=== PATIENT | male | born 1985 | race Caucasian/White ===

== ENCOUNTER 2021-07-05 09:35 | Emergency (ER) | payer SELFPAY ==
[~2021-07-05] VITALS: Ht 172.7 cm; Wt 123.4 kg
[2021-07-05] MEDS ORDERED: fentaNYL INJ 100 MCG/2 ML AMP IVP ONE (10:30)
[2021-07-05] MEDS ORDERED: lisINopril 20 MG (PRINIVIL) TABLET PO ONE (11:30)
[2021-07-05] MEDS ORDERED: KETOROLAC 30 MG/ML VIAL IVP ONE (11:30)
[2021-07-05 11:31] LABS: BASOPHILS % (AUTO) 0 % (0-10); EOSINOPHILS # (AUTO) 0.2 10^3/uL (0.0-0.3); EOSINOPHILS % (AUTO) 3 % (0-10); HEMATOCRIT 42 % (40-54); HEMOGLOBIN 14.9 g/dL (13.3-17.7); LYMPHOCYTES # (AUTO) 1.4 10^3/uL (1.0-4.0); LYMPHOCYTES % (AUTO) 20 % (12-44); MEAN CORPUSCULAR HEMOGLOBIN 30 pg (25-34); MEAN CORPUSCULAR HGB CONC 36 g/dL (32-36); MEAN CORPUSCULAR VOLUME 84 fL (80-99); MEAN PLATELET VOLUME 9.4 fL (9.0-12.2); MONOCYTES # (AUTO) 0.6 10^3/uL (0.0-1.0); MONOCYTES % (AUTO) 8 % (0-12); NEUTROPHILS # (AUTO) 4.7 10^3/uL (1.8-7.8); NEUTROPHILS % (AUTO) 68 % (42-75); PLATELET COUNT 208 10^3/uL (130-400)
[2021-07-05 11:39] LABS: CALCIUM 8.7 MG/DL (8.5-10.1); CREATININE SERUM 0.85 MG/DL (0.60-1.30); POTASSIUM 4.3 MMOL/L (3.6-5.0)
[2021-07-05] MEDS ORDERED: morphine INJ 10 MG/ML 1ML (SYR OR VIAL) IVP STA (11:58)
[2021-07-05] MEDS ORDERED: IOHEXOL 350 MG/ML 100 ML (OMNIPAQUE 350) VIAL IV ONE (12:45)
[2021-07-05] MEDS ORDERED: NS 100 ML (IVPB) BAG IV ONE (12:45)
[2021-07-05] MEDS ORDERED: HOLD METFORMIN - RECEIVED CONTRAST 20 ML VIAL IV SCH (12:45)
--- NOTE | 2021-07-05 13:00 | Diagnostic Imaging Report ---
PROCEDURE: CT maxillofacial with contrast. TECHNIQUE: After intravenous administration of contrast, axial images were obtained through the face and reformatted into coronal and sagittal planes. Auto Exposure Controls were utilized during the CT exam to meet ALARA standards for radiation dose reduction. INDICATION: Facial pain. Cellulitis. COVID positive. COMPARISON: None. FINDINGS: No acute facial fractures are identified. Pansinusitis is seen with the greatest involvement in the right maxillary sinus. The mastoid air cells are clear. The globes and orbits are symmetric and unremarkable. No post septal inflammatory changes are seen. No radiopaque foreign bodies. There is mild edema in the soft tissues overlying the right zygomatic arch. No evidence of loculated fluid collection. The included cervical spine demonstrates no acute fracture. The craniocervical junction is intact. The included intracranial contents demonstrate no acute abnormalities. IMPRESSION: 1. Pansinusitis. 2. Mild soft tissue edema overlying the right zygomatic arch. No evidence of abscess or radiopaque foreign body. 3. Unremarkable appearance of the globes and orbits. 4. No acute facial fractures. Dictated by: Dictated on workstation # [id number]
[2021-07-05] MEDS ORDERED: cefTRIAXone 1,000 MG in WATER (STERILE) FOR INJECTION 10 ML IV ONE (13:30)
[2021-07-05] MEDS ORDERED: FLUT9.9S NSEACH (13:36)
[2021-07-05] MEDS ORDERED: SULF1TAB38 PO (13:36)
[2021-07-05] MEDS ORDERED: AMOX500C2 PO (13:36)
[2021-07-05] MEDS ORDERED: OXYM15MI4 NSEACH (13:36)
[2021-07-05] MEDS ORDERED: OXYC1TAB87 PO (13:36)
--- NOTE | 2021-07-05 13:38 | ED General ---
General Chief Complaint: COVID19 Suspect/Confirmed Stated Complaint: COVID + R EYE IRRITATION [facility] Nursing Triage Note: PT AMB TO [facility] 9 WITH COMPLAINT OF RIGHT EYE/FACE DISCOMFORT. STATES HE TESTED POSITIVE FOR COVID ON TUESDAY. STATES HIS RIGHT NOSTRIL IS ALSO BLOCKED. Source of Information: Patient Exam Limitations: No Limitations History of Present Illness Date Seen by Provider: Jul 05, 2021 Time Seen by Provider: 10:43 Initial Comments This is a 36-year-old gentleman presents to the emergency room with flulike symptoms since July 01 and diagnosis of Covid on July 02. His primary complaint today is rather intense pain and congestion of the right face. This extends up into the periorbital region. He has tried Tylenol and ibuprofen without significant improvement. He is markedly hypertensive today and reports he has not yet taken his blood pressure medication. He has erythema and swelling of the right face. Patient notes fever at home but he is afebrile here and heart rate is normal. Allergies and Home Medications Allergies Coded Allergies: No Known Drug Allergies (Unverified , 07/05/21) Patient Home Medication List Home Medication List Reviewed: Yes Amoxicillin (Amoxicillin) 500 Mg Capsule, 1,000 MG PO BID Prescribed by: HAL MUNIZ on 07/05/21 133 Fluticasone Propionate (Flonase Allergy Relief) 9.9 Ml [place].susp, 2 SPRAY NSEACH DAILY Prescribed by: HAL MUNIZ on 07/05/211335 Methylprednisolone (Medrol) 4 Mg Tab.ds.pk, 4 MG PO UD Prescribed by: CHARIS FLORES on 07/05/211954 Oxycodone HCl/Acetaminophen (Percocet 5-325 mg Tablet) 1 Each Tablet, 1-2 TAB PO Q4H PRN for PAIN-BREAKTHROUGH Prescribed by: HAL MUNIZ on 07/05/211335 Oxymetazoline HCl (Afrin) 15 Ml Mist, 2 SPRAYS NSEACH BID Prescribed by: HAL MUNIZ on 07/05/21 133 Sulfamethoxazole/Trimethoprim (Bactrim Ds Tablet) 1 Each Tablet, 1 EACH PO BID Prescribed by: HAL MUNIZ on 07/05/21 133 Review of Systems Review of Systems Constitutional: see HPI EENTM: see HPI Respiratory: cough, short of breath Cardiovascular: no symptoms reported Gastrointestinal: no symptoms reported Genitourinary: no symptoms reported Musculoskeletal: no symptoms reported Skin: see HPI Psychiatric/Neurological: No Symptoms Reported Hematologic/Lymphatic: No Symptoms Reported Immunological/Allergic: no symptoms reported Past Vrjdsdg-Olpnhc-Kzbzeo Hx Patient Social History Tobacco Use?: No Use of E-Cig and/or Vaping dev: No Substance use?: No Alcohol Use?: No Pt feels they are or have been: No Past Medical History Surgeries: No (None reported) Respiratory: No Cardiac: Yes Hypertension Neurological: No Genitourinary: No Gastrointestinal: No Musculoskeletal: No Endocrine: Yes Diabetes, Non-Insulin dep HEENT: No Cancer: No Psychosocial: No Integumentary: No Physical Exam Vital Signs Vital Signs - First Documented 07/05/21 09:48 Temp 36.0 Pulse 68 Resp 22 B/P (MAP) 186/141 (156) Pulse Ox 98 O2 Delivery Room Air Capillary Refill : Less Than 3 Seconds Height, Weight, BMI Height: '" Weight: lbs. oz. kg; 41.00 BMI Method: General Appearance: No Apparent Distress, WD/WN, Obese HEENT: PERRL/EOMI, TMs Normal, Pharynx Normal, Other (Erythema and swelling of the right face with tenderness and warmth to palpation. He has pain with extraocular movement but no changes in vision or diplopia. 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 Skin: Normal Color, Warm/Dry, Erythema (Of the right face) Progress/Results/Core Measures Suspected Sepsis SIRS Temperature: Pulse: 68 Respiratory Rate: 22 Laboratory Tests 07/05/21 10:40: White Blood Count 7.0 Blood Pressure 186 /141 Mean: 156 Laboratory Tests 07/05/21 10:40: Creatinine 0.85, Platelet Count 208 Results/Orders Lab Results Laboratory Tests Test 07/05/21 10:40 Range/Units White Blood Count 7.0 4.3-11.0 10^3/uL Red Blood Count 5.03 4.30-5.52 10^6/uL Hemoglobin 14.9 13.3-17.7 g/dL Hematocrit 42 40-54 % Mean Corpuscular Volume 84 80-99 fL Mean Corpuscular Hemoglobin 30 25-34 pg Mean Corpuscular Hemoglobin Concent 36 32-36 g/dL Red Cell Distribution Width 11.9 10.0-14.5 % Platelet Count 208 130-400 10^3/uL Mean Platelet Volume 9.4 9.0-12.2 fL Immature Granulocyte % (Auto) 1 % Neutrophils (%) (Auto) 68 42-75 % Lymphocytes (%) (Auto) 20 12-44 % Monocytes (%) (Auto) 8 0-12 % Eosinophils (%) (Auto) 3 0-10 % Basophils (%) (Auto) 0 0-10 % Neutrophils # (Auto) 4.7 1.8-7.8 10^3/uL Lymphocytes # (Auto) 1.4 1.0-4.0 10^3/uL Monocytes # (Auto) 0.6 0.0-1.0 10^3/uL Eosinophils # (Auto) 0.2 0.0-0.3 10^3/uL Basophils # (Auto) 0.0 0.0-0.1 10^3/uL Immature Granulocyte # (Auto) 0.1 0.0-0.1 10^3/uL Sodium Level 135 135-145 MMOL/L Potassium Level 4.3 3.6-5.0 MMOL/L Chloride Level 101 98-107 MMOL/L Carbon Dioxide Level 26 21-32 MMOL/L Anion Gap 8 5-14 MMOL/L Blood Urea Nitrogen 7 7-18 MG/DL Creatinine 0.85 0.60-1.30 MG/DL Estimat Glomerular Filtration Rate 101 BUN/Creatinine Ratio 8 Glucose Level 268 H 70-105 MG/DL Calcium Level 8.7 8.5-10.1 MG/DL C-Reactive Protein High Sensitivity 2.36 H 0.00-0.50 MG/DL Procalcitonin 0.04 <0.10 NG/ML My Orders Orders - HAL SANFORD MD Fentanyl Inj (Sublimaze Injection) (07/05/21 10:30) Ketorolac Injection (Toradol Injection) (07/05/21 11:30) Lisinopril Tablet (Zestril Tablet) (07/05/21 11:30) Basic Metabolic Panel (07/05/21 11:19) Cbc With Automated Diff (07/05/21 11:19) Hs C Reactive Protein (07/05/21 11:19) Procalcitonin (Pct) (07/05/21 11:19) Ct Maxillofacial W (07/05/21 11:19) Morphine Injection (Morphine Injection (07/05/21 11:58) Iohexol Injection (Omnipaque 350 Mg/Ml 1 (07/05/21 12:45) Received Contrast (Hold Metformin- Contr (07/05/21 12:45) Ns (Ivpb) (Sodium Chloride 0.9% Ivpb Bag (07/05/21 12:45) Ceftriaxone (Rocephin) (07/05/21 13:30) Medications Given in ED Current Medications Medications Dose Ordered Sig/Nigel Route Start Time Stop Time Status Last Admin Dose Admin Ceftriaxone Sodium 1000 mg/ Sterile Water 10 ml @ 200 mls/hr ONCE ONCE IV 07/05/21 13:30 07/05/21 13:32 DC 07/05/21 13:55 200 MLS/HR Fentanyl Citrate 50 mcg ONCE ONCE IVP 07/05/21 10:30 07/05/21 10:31 DC 07/05/21 10:42 50 MCG Iohexol 75 ml ONCE ONCE IV 07/05/21 12:45 07/05/21 12:46 DC 07/05/21 12:42 75 ML Ketorolac Tromethamine 30 mg ONCE ONCE IVP 07/05/21 11:30 07/05/21 11:31 DC 07/05/21 11:46 30 MG Lisinopril 20 mg ONCE ONCE PO 07/05/21 11:30 07/05/21 11:31 DC 07/05/21 11:46 20 MG Sodium Chloride 100 ml ONCE ONCE IV 07/05/21 12:45 07/05/21 12:46 DC 07/05/21 12:42 80 ML Vital Signs/I&O 07/05/21 07/05/21 09:48 14:04 Temp 36.0 Pulse 68 67 Resp 22 19 B/P (MAP) 186/141 (156) 134/105 Pulse Ox 98 98 O2 Delivery Room Air Room Air Capillary Refill : Less Than 3 Seconds Blood Pressure Mean: 156 Progress Note : Progress Note Patient was seen and evaluated. Pain was initially treated with fentanyl. This was later followed by Toradol and morphine as his pain was difficult to manage. He was given his usual dose of lisinopril to help with his blood pressure. Blood pressure did significantly improve. CT imaging of the face was obtained to rule out any abscess or orbital pathology. CT was suggestive of cellulitis but showed no abscess. There was also pansinusitis. Labs were unremarkable. Patient had no suggestion of sepsis on his work-up. He was treated with a dose of Rocephin. Prescriptions were provided for treatment of sinusitis and pain. Patient was also noted to have comorbidities at high risk in Covid infection including diabetes, obesity, and hypertension. We discussed monoclonal antibody therapy which he would like to have ordered. He will review the fact sheet. An order was sent to pharmacy. See discharge instructions for further discussion. Diagnostic Imaging Diagonstic Imaging: CT Plain Films/CT/US/NM/MRI: facial bones Comments CT scan report reviewed. See report below: NAME: HANNAH MANCILLA [facility] REC#: [id number] PT STATUS: REG ER : 1985 PHYSICIAN: HAL SANFORD MD ADMIT DATE: 07/05/21/ER Signed Date of Exam:07/05/21 CT MAXILLOFACIAL W PROCEDURE: CT maxillofacial with contrast. TECHNIQUE: After intravenous administration of contrast, axial images were obtained through the face and reformatted into coronal and sagittal planes. Auto Exposure Controls were utilized during the CT exam to meet ALARA standards for radiation dose reduction. INDICATION: Facial pain. Cellulitis. COVID positive. COMPARISON: None. FINDINGS: No acute facial fractures are identified. Pansinusitis is seen with the greatest involvement in the right maxillary sinus. The mastoid air cells are clear. The globes and orbits are symmetric and unremarkable. No post septal inflammatory changes are seen. No radiopaque foreign bodies. There is mild edema in the soft tissues overlying the right zygomatic arch. No evidence of loculated fluid collection. The included cervical spine demonstrates no acute fracture. The craniocervical junction is intact. The included intracranial contents demonstrate no acute abnormalities. IMPRESSION: 1. Pansinusitis. 2. Mild soft tissue edema overlying the right zygomatic arch. No evidence of abscess or radiopaque foreign body. 3. Unremarkable appearance of the globes and orbits. 4. No acute facial fractures. Dictated by: Dictated on workstation # [id number] Dict: 07/05/21 1251 Trans: 07/05/21 1301 [facility] [id number] Interpreted by: FEDERICO BROUSSARD DO Electronically signed by: FEDERICO BROUSSARD DO 07/05/21 1301 Departure Impression Primary Impression: Acute pansinusitis Qualified Codes: J01.40 - Acute pansinusitis, unspecified Additional Impressions: Facial cellulitis COVID-19 Hypertension Qualified Codes: I10 - Essential (primary) hypertension Disposition: HOME, SELF-CARE Condition: Improved Departure-Patient Inst. Decision time for Depature: 13:32 Referrals: [facility] [place] Primary Care Physician AYLIN VIDES (Family) Primary Care Physician Patient Instructions: Sinusitis, Adult ED Add. Discharge Instructions: Complete your antibiotics as prescribed. Use ibuprofen up to 600 mg every 6 hours as needed for primary pain control. Add Percocet as prescribed for pain not controlled by ibuprofen. For nasal congestion you may use Afrin 2 sprays in each nostril twice daily for 3 days. Do NOT use Afrin for more than 3 days. You may continue to use Flonase (fluticasone) nasal steroid spray indefinitely for further nasal congestion relief. Call with questions or concerns. Return to the ER if you have worsening symptoms. The pharmacy should be calling you to schedule a time for monoclonal antibody therapy. If you decide to proceed with this after reading the fact sheet, then follow pharmacy instructions for returning for infusion. All discharge instructions reviewed with patient and/or family. Voiced understanding. Scripts Fluticasone Propionate (Flonase Allergy Relief) 9.9 Ml [place].susp 2 SPRAY NSEACH DAILY, #1 EACH 2 SPRAYS PER NOSTRIL DAILY X 2 DAYS THEN 1 SPRAY DAILY Prov: HAL SANFORD MD 07/05/21 Oxymetazoline HCl (Afrin) 15 Ml Mist 2 SPRAYS NSEACH BID, #1 EA Prov: HAL SANFORD MD 07/05/21 Amoxicillin (Amoxicillin) 500 Mg Capsule 1000 MG PO BID, #40 CAP 0 Refills Prov: HAL SANFORD MD 07/05/21 Sulfamethoxazole/Trimethoprim (Bactrim Ds Tablet) 1 Each Tablet 1 EACH PO BID, #20 TAB Prov: HAL SANFORD MD 07/05/21 Oxycodone HCl/Acetaminophen (Percocet 5-325 mg Tablet) 1 Each Tablet 1-2 TAB PO Q4H PRN for PAIN-BREAKTHROUGH MDD 12 TABS, #20 TAB Prov: HAL SANFORD MD 07/05/21 HAL SANFORD MD Jul 05, 2021 13:38
[2021-07-05 14:04] VITALS: BP 134/105
[2021-07-05] MEDS ORDERED: METH4TAB PO (19:55)
== END 2021-07-05 14:04 | disposition home or self-care (01) ==
LOC: ER 09:39
DX: U07.1 COVID-19 (principal); J01.40 Acute pansinusitis, unspecified; L03.211 Cellulitis of face; I10 Essential (primary) hypertension; E66.9 Obesity, unspecified; E11.9 Type 2 diabetes mellitus without complications; Z68.41 Body mass index [BMI] 40.0-44.9, adult
CPT/HCPCS: 36415; 70487; 80048; 84145; 85025; 86141; 96374; 96375

== ENCOUNTER 2021-07-05 19:15 | Emergency (ER) | payer SELFPAY ==
[~2021-07-05] VITALS: Ht 172.7 cm; Wt 123.4 kg
[~2021-07-05 19:15] MED LIST: AMOX500C2 PO; FLUT9.9S NSEACH; OXYC1TAB87 PO; OXYM15MI4 NSEACH; SULF1TAB38 PO
[2021-07-05 19:23] VITALS: BP 152/101
[2021-07-05] MEDS ORDERED: METH4TAB PO (19:55)
--- NOTE | 2021-07-05 19:55 | ED EENT ---
History of Present Illness General Chief Complaint: Nasal Problems Stated Complaint: SINUS INFECTION PAIN Nursing Triage Note: c/o right sided sinus pain here for same 07/05/21 reports percocet not working for pain. covid positive 07/02/21 Allergies and Home Medications Allergies Coded Allergies: No Known Drug Allergies (Unverified , 07/05/21) Patient Home Medication List Amoxicillin (Amoxicillin) 500 Mg Capsule, 1,000 MG PO BID Prescribed by: HAL MUNIZ on 07/05/21 133 Fluticasone Propionate (Flonase Allergy Relief) 9.9 Ml [place].susp, 2 SPRAY N SEACH DAILY Prescribed by: HAL MUNIZ on 07/05/21 133 Methylprednisolone (Medrol) 4 Mg Tab.ds.pk, 4 MG PO UD Prescribed by: CHARIS FLORES on 07/05/211954 Oxycodone HCl/Acetaminophen (Percocet 5-325 mg Tablet) 1 Each Tablet, 1-2 TAB PO Q4H PRN for PAIN-BREAKTHROUGH Prescribed by: HAL MUNIZ on 07/05/21 133 Oxymetazoline HCl (Afrin) 15 Ml Mist, 2 SPRAYS NSEACH BID Prescribed by: HAL MUNIZ on 07/05/21 133 Sulfamethoxazole/Trimethoprim (Bactrim Ds Tablet) 1 Each Tablet, 1 EACH PO BID Prescribed by: HAL MUNIZ on 07/05/21 133 Past Xufekrk-Hncoze-Rinycf Hx Patient Social History Tobacco Use?: Yes Substance use?: No Alcohol Use?: No Pt feels they are or have been: No Past Medical History Surgery/Hospitalization HX: niddm, htn,depression, Physical Exam Vital Signs Vital Signs - First Documented 07/05/21 19:23 Temp 36.9 Pulse 67 Resp 16 B/P (MAP) 152/101 (118) Pulse Ox 98 O2 Delivery Room Air Height, Weight, BMI Height: '" Weight: lbs. oz. kg; 41.00 BMI Method: Progress/Results/Core Measures Results/Orders My Orders Orders - CHARIS FLORES DO Ketorolac Injection (Toradol Injection) (07/05/21 20:00) Vital Signs/I&O 07/05/21 19:23 Temp 36.9 Pulse 67 Resp 16 B/P (MAP) 152/101 (118) Pulse Ox 98 O2 Delivery Room Air Blood Pressure Mean: 118 Departure Impression Primary Impression: Acute pansinusitis Additional Impressions: COVID-19 Facial cellulitis Disposition: HOME, SELF-CARE Condition: Stable Departure-Patient Inst. Decision time for Depature: 19:53 Referrals: [facility] (PCP) Primary Care Physician AYLIN VIDES (Family) Primary Care Physician Patient Instructions: COVID-19 (DC), Sinusitis, Adult (DC) Add. Discharge Instructions: CONTINUE ALL MEDICATIONS PRESCRIBED FOLLOW UP WITH [facility] IN 4-5 DAYS IF NO BETTER, RETURN TO ER IF WORSE TYLENOL AND MOTRIN NEEDED FOR PAIN OR FEVER LOTS OF CLEAR LIQUIDS All discharge instructions reviewed with patient and/or family. Voiced understanding. Scripts Methylprednisolone (Medrol) 4 Mg Tab.ds.pk 4 MG PO UD for 6 Days, #21 PKG PER DOSE PACK INSTRUCTIONS Prov: CHARIS FLORES DO 07/05/21 CHARIS FLORES DO Jul 05, 2021 19:55
[2021-07-05] MEDS ORDERED: KETOROLAC 60 MG/2 ML VIAL IM ONE (20:00)
== END 2021-07-05 20:00 | disposition home or self-care (01) ==
LOC: EDUNIT# 19:15 → ER 19:16
DX: U07.1 COVID-19 (principal); J01.40 Acute pansinusitis, unspecified; L03.211 Cellulitis of face; I10 Essential (primary) hypertension
CPT/HCPCS: 99281

== ENCOUNTER 2021-07-06 11:44 | Outpatient (CLI) | payer SELFPAY ==
[~2021-07-06] VITALS: Ht 172.7 cm; Wt 123.6 kg
[~2021-07-06 11:44] MED LIST changes: +METH4TAB PO
[2021-07-06 11:55] VITALS: BP 157/96
[2021-07-06] MEDS ORDERED: ACETAMINOPHEN 500 MG TAB (TYLENOL) PO PRN (12:00)
[2021-07-06] MEDS ORDERED: ONDANSETRON 4 MG/2 ML (SDV) Z0FRAN IV PRN (12:00)
[2021-07-06] MEDS ORDERED: CASIRIVIMAB/IMDEVIMAB 1,200 MG in NS (IVPB) 250 ML IV ONE (12:00)
[2021-07-06] MEDS ORDERED: EPINEPHrine INJECTION 1 MG/ML AMP IM PRN (12:00)
[2021-07-06] MEDS ORDERED: diphenhydrAMINE 50 MG/ML INJ (BENADRYL) IV PRN (12:00)
[2021-07-06 12:25] VITALS: BP 140/93
[2021-07-06 13:01] VITALS: BP 136/87
== END 2021-07-06 13:56 ==
LOC: INFUSION 11:44
PROVIDERS: ATTEND Family Medicine
DX: U07.1 COVID-19 (principal)